=== PATIENT | female | born 1960 | race Two or more races ===

== ENCOUNTER → 2018-08-08 | Outpatient (CLI) | payer OTHER ==
[~2018-08-08] MED LIST: AMARYL PO; ASA81 MG PO; ATIVAN1 M1 PO; COZAAR50 MG PO; FORTAMET1000 MG PO; LIPITOR40 MG PO; OMEPRAZOLE20 M1 PO; RANITIDINE HCL300 MG PO; TOPROL XL25 M1 PO; WELLBUTRIN SR100 MG PO
== END | disposition home or self-care (01) ==
LOC: MAMO-SONO 09:37
DX: Z12.31 Encounter for screening mammogram for malignant neoplasm of breast (principal); N64.4 Mastodynia

== ENCOUNTER 2020-03-18 08:38 | Outpatient (CLI) | payer OTHER | END 2020-03-18 09:08 | disposition home or self-care (01) | LOC: TOM 08:38 | PROVIDERS: ATTEND Internal Medicine Gastroenterology | DX: K57.90 Diverticulosis of intestine, part unspecified, without perforation or abscess without bleeding (principal); Z12.11 Encounter for screening for malignant neoplasm of colon ==